=== PATIENT | female | born 1950 | race Hispanic/Latino ===

== ENCOUNTER 2016-04-06 10:51 | Outpatient (CLI) | payer MEDICARE ==
--- NOTE | 2016-04-06 15:26 | Mammography Report ---
BILATERAL DIGITAL SCREENING MAMMOGRAM with CAD: 04/06/16 10:51:00 CLINICAL: Routine screening. COMPARISON: 03/31/15 FINDINGS: There are bilateral scattered areas of fibroglandular density.No mass, architectural distortion or suspicious calcifications. IMPRESSION: No mammographic evidence of malignancy. BI-RADS CATEGORY: 1 -- Negative RECOMMENDATION: Routine mammographic screening in one year. COMMENT: Patient follow-up letters are generated by our [employer] application.
== END 2016-04-06 10:52 | disposition home or self-care (01) ==
LOC: SPVWC 10:51
PROVIDERS: ATTEND Obstetrics & Gynecology
DX: Z12.31 Encounter for screening mammogram for malignant neoplasm of breast (principal)
CPT/HCPCS: 77067; G0202

== ENCOUNTER 2016-04-13 09:12 | Outpatient (CLI) | payer MEDICARE ==
--- NOTE | 2016-04-14 12:58 | Cat Scan Report ---
CT ABDOMEN AND PELVIS WITHOUT AND WITH CONTRAST: 04/13/16 09:12:00 CLINICAL: Abdominal and pelvic pain. COMPARISON: None TECHNIQUE: Volumetric acquisition and 1.25 millimeter scan reconstructions without contrast and after the uneventful intravenous injection of 100 cc Omnipaque 300. Consent was obtained prior to the administration of contrast. Oral contrast was also given. FINDINGS: Abdomen: Clear lung bases. Normal liver and bile ducts status post cholecystectomy. The CBD measures 8 mm and tapers to the ampulla. Normal stomach, duodenum, pancreas and spleen. Normal adrenal glands and kidneys. The renal collecting systems and ureters are nondilated. Mild calcification of the abdominal aorta and iliac arteries. The inferior vena cava is normal. A partially calcified irregular mass of the small bowel mesentery measures 7.8 cm craniocaudal dimension by 7.4 cm transverse dimension by 3.7 cm AP dimension. There are numerous calcifications within the mass and the mass exhibits a desmoplastic reaction with fingerlike projections radiating from that. The small bowel is normal with no apparent involvement of small bowel loops. Normal ascending, transverse and descending colon. The terminal ileum is normal. An appendix is not identified. There is a "alessia mesentery" and numerous subcentimeter lymph nodes in the small bowel mesentery. Numerous retroperitoneal subcentimeter lymph nodes are also identified. No ascites. Pelvis: Normal urinary bladder and rectum. Normal uterus and ovaries. Mild free fluid in the pelvis. Sigmoid diverticulosis but no signs of diverticulitis. Bone windows demonstrate mild osteopenia and degenerative changes in the lumbar spine. No suspicious bone lesion. IMPRESSION:1. 8 cm partially calcified mass of the small bowel mesentery with a desmoplastic reaction. 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 2. No apparent involvement of small bowel. 3. No evidence of hepatic carcinoid. 4. Sigmoid diverticulosis but no diverticulitis. 5. Status post cholecystectomy and presumed appendectomy.
== END 2016-04-13 09:13 | disposition home or self-care (01) ==
LOC: SPVIMAG 09:12
PROVIDERS: ATTEND Obstetrics & Gynecology
DX: K57.30 Diverticulosis of large intestine without perforation or abscess without bleeding (principal); K63.89 Other specified diseases of intestine; I70.0 Atherosclerosis of aorta; I70.8 Atherosclerosis of other arteries; M85.80 Other specified disorders of bone density and structure, unspecified site; M47.896 Other spondylosis, lumbar region; Z90.49 Acquired absence of other specified parts of digestive tract
CPT/HCPCS: 74178; Q9967

== ENCOUNTER 2017-08-10 09:27 | Outpatient (CLI) | payer MEDICARE ==
--- NOTE | 2017-08-10 15:54 | Mammography Report ---
BILATERAL DIGITAL SCREENING MAMMOGRAM with CAD: 08/10/17 09:27:00 CLINICAL: Routine screening. COMPARISON: 03/31/15 FINDINGS: There are bilateral scattered areas of fibroglandular density.No mass, architectural distortion or suspicious calcifications. IMPRESSION: No mammographic evidence of malignancy. BI-RADS CATEGORY: 1 -- Negative RECOMMENDATION: Routine mammographic screening in one year. COMMENT: Patient follow-up letters are generated by our [employer] application.
== END 2017-08-10 09:28 | disposition home or self-care (01) ==
LOC: SPVWC 09:27
PROVIDERS: ATTEND Obstetrics & Gynecology
DX: Z12.31 Encounter for screening mammogram for malignant neoplasm of breast (principal)
CPT/HCPCS: 77067

== ENCOUNTER 2018-08-17 09:15 | Outpatient (CLI) | payer MEDICARE ==
--- NOTE | 2018-08-17 14:53 | Mammography Report ---
BILATERAL DIGITAL SCREENING MAMMOGRAM with CAD: 08/17/18 09:15:00 CLINICAL: Routine screening. COMPARISON:08/10/17 FINDINGS: The breasts are heterogeneously dense, which may obscure small masses. No mass, architectural distortion or suspicious calcifications. IMPRESSION: No mammographic evidence of malignancy. BI-RADS CATEGORY: 1 - - Negative RECOMMENDATION: Routine mammographic screening in one year. COMMENT: Patient follow-up letters are generated by our [employer] application.
== END 2018-08-17 09:16 | disposition home or self-care (01) ==
LOC: SPVWC 09:15
PROVIDERS: ATTEND Obstetrics & Gynecology
DX: Z12.31 Encounter for screening mammogram for malignant neoplasm of breast (principal)
CPT/HCPCS: 77067

== ENCOUNTER 2020-01-03 09:13 | Outpatient (CLI) | payer MEDICARE ==
--- NOTE | 2020-01-03 13:43 | Mammography Report ---
DIGITAL SCREENING MAMMOGRAM WITH CAD, 01/03/2020 CLINICAL INFORMATION / INDICATION: Routine screening mammography. TECHNIQUE: Digital bilateral 2D mammography was obtained in the craniocaudal and mediolateral obliqu e projections. This examination was interpreted with the benefit of Computer-Aided Detection analysis . COMPARISON: 08/17/2018, 08/10/2017 FINDINGS: Breast Density: There are scattered areas of fibroglandular density. No dominant mass, suspicious calcifications, or architectural distortion in either breast. IMPRESSION: No mammographic evidence of malignancy. Follow up recommendation: Routine yearly BI-RADS Category 1: Negative. A "normal" or negative report should not discourage follow up or biopsy of a clinically significant f inding. A written summary of these findings will be mailed to the patient. The patient will be entered into a mammography reporting system which will generate a reminder letter for the patient's next appointmen t at the appropriate interval. The [employer] recommends yearly mammograms starting at age 40 and continuing as l stevie as a woman is in good health. Breast MRI is recommended for women with an approximate 20-25% or greater lifetime risk of breast cancer, including women with a strong family history of breast or ova wilner cancer or who have been treated for Hodgkin's disease. Signer Name: Carlos Petit MD Signed: 01/03/2020 1:39 PM Workstation Name: [email or web address]
== END 2020-01-03 09:14 | disposition home or self-care (01) ==
LOC: SPVWC 09:13
PROVIDERS: ATTEND Obstetrics & Gynecology
DX: Z12.31 Encounter for screening mammogram for malignant neoplasm of breast (principal)
CPT/HCPCS: 77067

== ENCOUNTER 2021-01-29 09:08 | Outpatient (CLI) | payer MEDICARE ==
--- NOTE | 2021-01-30 16:29 | Mammography Report ---
DIGITAL SCREENING MAMMOGRAM WITH CAD, 01/29/2021 CLINICAL INFORMATION / INDICATION: Routine screening mammography. TECHNIQUE: Digital bilateral 2D mammography was obtained in the craniocaudal and mediolateral obliqu e projections. This examination was interpreted with the benefit of Computer-Aided Detection analysis . COMPARISON: 01/03/2020, 08/17/2018 FINDINGS: Breast Density: There are scattered areas of fibroglandular density. No dominant mass, suspicious calcifications, or architectural distortion in either breast. No interval change. IMPRESSION: No mammographic evidence of malignancy. Follow up recommendation: Routine yearly BI-RADS Category 1: Negative. A "normal" or negative report should not discourage follow up or biopsy of a clinically significant f inding. A written summary of these findings will be mailed to the patient. The patient will be entered into a mammography reporting system which will generate a reminder letter for the patient's next appointmen t at the appropriate interval. The [employer] recommends yearly mammograms starting at age 40 and continuing as l stevie as a woman is in good health. Breast MRI is recommended for women with an approximate 20-25% or greater lifetime risk of breast cancer, including women with a strong family history of breast or ova wilner cancer or who have been treated for Hodgkin's disease. Signer Name: Em Ford MD Signed: 01/30/2021 4:25 PM Workstation Name: [email or web address]
== END 2021-01-29 09:09 | disposition home or self-care (01) ==
LOC: SPVWC 09:08
PROVIDERS: ATTEND Obstetrics & Gynecology
DX: Z12.31 Encounter for screening mammogram for malignant neoplasm of breast (principal)
CPT/HCPCS: 77067